=== PATIENT | female | born 1945 | race Caucasian/White ===

== ENCOUNTER 2017-03-28 16:17 | Emergency (ER) | payer BC, MEDICARE ==
[2017-03-28] MEDS ORDERED: CELEBREX200 M1 PO (16:43)
[2017-03-28] MEDS ORDERED: AMOXICILLIN500 M1 PO (16:43)
[2017-03-28] MEDS ORDERED: AMBIEN5 M1 PO (16:44)
[2017-03-28] MEDS ORDERED: NORVASC5 M2 PO ×2 (16:44→16:52)
[2017-03-28] MEDS ORDERED: PROPRANOLOL HCL10 M1 PO (16:44)
[2017-03-28] MEDS ORDERED: HYZAAR 50-12.51 EACH PO (16:44)
[2017-03-28] MEDS ORDERED: POTASSIUM CHLO20 ME3 PO (16:44)
[2017-03-28] MEDS ORDERED: CENTRUM SILVER1 EAC3 PO (16:50)
[2017-03-28] MEDS ORDERED: ASPIRIN EC81 MG PO (16:50)
[2017-03-28] MEDS ORDERED: MACUVITE WITH1 EACH PO (16:51)
[2017-03-28] MEDS ORDERED: LOSARTAN-HCTZ1 EAC5 PO (16:51)
[2017-03-28 17:52] LABS: ANION GAP 15 mmol/L (0-20); BLOOD UREA NITROGEN 11 mg/dl (6-24); CARBON DIOXIDE-VENOUS 24 mmol/L (22-32); CHLORIDE 95 mmol/l (96-110); CREATININE 0.67 mg/dl (0.50-1.10); GLUCOSE 108 mg/dL (70-110); POTASSIUM 3.3 mmol/L (3.7-5.1); SODIUM 131 mmol/L (135-145); eGFR VALUE FOR BLACK >90 mL/Min
== END 2017-03-28 18:25 ==
LOC: EDMED 16:17
PROVIDERS: Emergency Medicine
DX: I10 Essential (primary) hypertension (principal); E87.6 Hypokalemia; Z79.82 Long term (current) use of aspirin; Z79.899 Other long term (current) drug therapy